=== PATIENT | female | born 1945 | race Two or more races ===

== ENCOUNTER 2022-05-29 20:08 | Emergency (ER) | payer OTHER ==
[~2022-05-29] VITALS: Ht 160 cm; Wt 68.0 kg
[2022-05-29] MEDS ORDERED: CHILDREN'S ASPI81 MG PO (20:28)
[2022-05-29] MEDS ORDERED: VASOTEC2.5 MG PO (20:28)
[2022-05-29] MEDS ORDERED: GLUMETZA500 MG PO (20:28)
[2022-05-29] MEDS ORDERED: DUI500 PO (21:03)
== END 2022-05-29 21:05 | disposition home or self-care (01) ==
LOC: ER 20:08
DX: S91.312A Laceration without foreign body, left foot, initial encounter (principal); W25.XXXA Contact with sharp glass, initial encounter; Y93.9 Activity, unspecified; Y92.9 Unspecified place or not applicable; Y99.9 Unspecified external cause status